=== PATIENT | female | born 1950 | race Caucasian/White ===

== ENCOUNTER → 2017-10-28 20:11 | Emergency (ER) | payer MEDICARE, OTHER ==
[~2017-10-28 20:11] MED LIST: Ciprofloxacin 400MG IVPREMIX(* 400 MG/200 ML BAG IVPB ONE; Morphine INJ* 2 MG/ML 1 ML SYRINGE (TWO MG - NEW SYRINGE VERSION) ONE; Morphine INJ** 4 MG/ML 1 ML CARPUJECT IV ONE
[2017-10-28 21:14] LABS: Urine Appearance Clear; Urine Blood 1+ (Negative); Urine Color Straw; Urine Ketones Negative (Negative); Urine Protein Negative (Negative); Urine Red Blood Cell Trace(0-2/hpf) (Absent); Urine Specific Gravity 1.006 (1.010-1.030); Urine Urobilinogen Negative (Negative); Urine White Blood Cell Trace(0-5/hpf) (Absent)
[2017-10-28 21:31] LABS: ABS Basophils 0.1 10^3/ul (0-0.2); ABS Eosinophils 0.5 10^3/ul (0-0.6); ABS Lymphocytes 2.1 10^3/ul (1.0-4.8); ABS Monocytes 1.4 10^3/ul (0-0.8); ABS Neutrophils 6.4 10^3/ul (1.5-7.7); ABS Nucleated RBC 0 10^3/ul; Eosinophil % 5.2 % (0-6); Hematocrit 47 % (35-47); Hemoglobin 15.8 g/dl (12.0-16.0); Lymphocyte % 19.8 % (25-47); Mean Corpuscular HGB Conc 34 g/dl (31-36); Mean Corpuscular Hemoglobin 30 pg (27-31); Mean Corpuscular Volume 90 fL (80-97); Mean Platelet Volume 7.8 um3 (7.4-10.4); Nucleated Red Blood Cells % 0.4; Platelet Count 256 10^3/ul (150-450); Red Cell Distribution Width 14 % (10.5-15); White Blood Count 10.5 10^3/ul (3.5-10.8)
[2017-10-28 21:47] LABS: EGFR Non-African American 82.4 (>60)
--- NOTE | 2017-10-28 22:39 | ED ---
GI/ HPI - HPI Summary HPI Summary: 67-year-old female presents with left-sided flank pain for the past couple days. She denies any injury. She admits to urgency. No dysuria. No hematuria. Denies any history of kidney stones. She denies any bowel pain. No nausea or vomiting. No fevers. No diarrhea or constipation. She denies any chest pain or shortness breath. No vaginal discharge. No loss of bowel or bladder. No saddle anesthesia. No pains in legs. No weakness. She has been trying Tylenol ibuprofen with minimal relief. She has never had this before. Has had a hysterectomy. Does not have a history of high blood pressure. - History of Current Complaint Chief Complaint: EDBackInjuryPain Time Seen by Provider: 10/28/17 21:06 Stated Complaint: BACK PAIN Pain Intensity: 8 - Allergy/Home Medications Allergies/Adverse Reactions: Allergies Allergy/AdvReac Type Severity Reaction Status Date / Time amoxicillin AdvReac GI Upset Verified 10/28/17 20:20 Home Medications: Home Medications Budesonide/Formote 160/4.5(NF) [Symbicort 160/4.5 (NF)] 1 inh .ROUTE DAILY 10/28 [History Confirmed 10/28/17] Tiotropium [place] [Spiriva Respimat] 1 inh .ROUTE DAILY 10/28/17 [History Confirmed 10/28/17] PMH/Surg Hx/FS Hx/Imm Hx Endocrine/Hematology History: Reports: Hx Diabetes Denies: Hx Anticoagulant Therapy Respiratory History: Reports: Hx Asthma - Cancer History Hx Chemotherapy: No Hx Radiation Therapy: No Infectious Disease History: No Infectious Disease History: Denies: Hx Clostridium Difficile, Hx Hepatitis, Hx Human Immunodeficiency Virus (HIV), Hx of Known/Suspected MRSA, Hx Shingles, Hx Tuberculosis, Traveled Outside the [place] in Last 30 Days - Family History Known Family History: Positive: Diabetes - Social History Alcohol Use: Rare Substance Use Type: Reports: None Smoking Status (MU): Never Smoked Tobacco Review of Systems Negative: Fever Negative: Chest Pain Negative: Shortness Of Breath Negative: Abdominal Pain Positive: flank pain All Other Systems Reviewed And Are Negative: Yes Physical Exam Triage Information Reviewed: Yes Vital Signs On Initial Exam: Initial Vitals Temp Pulse Resp BP Pulse Ox 99.5 F 98 16 180/108 97 10/28/17 20:13 10/28/17 20:13 10/28/17 20:13 10/28/17 20:13 10/28/17 20:13 Vital Signs Reviewed: Yes Appearance: Positive: Well-Appearing Skin: Positive: Warm, Dry Head/Face: Positive: Normal Head/Face Inspection Eyes: Positive: Normal, Conjunctiva Clear ENT: Positive: Pharynx normal Respiratory/Lung Sounds: Positive: Clear to Auscultation, Breath Sounds Present Cardiovascular: Positive: Normal, RRR Abdomen Description: Positive: Nontender, Soft, CVA Tenderness (L), Other: - tenderness left side of lower back Bowel Sounds: Positive: Present Musculoskeletal: Positive: Strength/ROM Intact - back, Other - tenderness side of back left, good pulses, neg SLR, sensation grossly intact lower extremity Neurological: Positive: Normal Psychiatric: Positive: Normal Diagnostics - Vital Signs Vital Signs Temp Pulse Resp BP Pulse Ox 10/28/17 21:39 17 10/28/17 20:13 99.5 F 98 16 180/108 97 - Laboratory Lab Results: Lab Results 10/28/17 10/28/17 10/28/17 Range/Units 20:58 21:23 21:23 WBC 10.5 (3.5-10.8) 10^3/ul RBC 5.20 (4.00-5.40) 10^6/ul Hgb 15.8 (12.0-16.0) g/dl Hct 47 (35-47) % MCV 90 (80-97) fL MCH 30 (27-31) pg MCHC 34 (31-36) g/dl RDW 14 (10.5-15) % Plt Count 256 (150-450) 10^3/ul MPV 7.8 (7.4-10.4) um3 Neut % (Auto) 60.4 (38-83) % Lymph % (Auto) 19.8 L (25-47) % [place] % (Auto) 13.5 H (0-7) % Eos % (Auto) 5.2 (0-6) % Baso % (Auto) 1.1 (0-2) % Absolute Neuts (auto) 6.4 (1.5-7.7) 10^3/ul Absolute Lymphs (auto) 2.1 (1.0-4.8) 10^3/ul Absolute Monos (auto) 1.4 H (0-0.8) 10^3/ul Absolute Eos (auto) 0.5 (0-0.6) 10^3/ul Absolute Basos (auto) 0.1 (0-0.2) 10^3/ul Absolute Nucleated RBC 0 10^3/ul Nucleated RBC % 0.4 Sodium 138 (135-145) mmol/L Potassium 3.8 (3.5-5.0) mmol/L Chloride 105 (101-111) mmol/L Carbon Dioxide 25 (22-32) mmol/L Anion Gap 8 (2-11) mmol/L BUN 16 (6-24) mg/dL Creatinine 0.71 (0.51-0.95) mg/dL Est GFR ( Amer) 99.7 (>60) Est GFR (Non-Af Amer) 82.4 (>60) BUN/Creatinine Ratio 22.5 H (8-20) Glucose 118 H (70-100) mg/dL Calcium 9.1 (8.6-10.3) mg/dL Total Bilirubin 0.30 (0.2-1.0) mg/dL AST 15 (13-39) U/L ALT 16 (7-52) U/L Alkaline Phosphatase 77 (34-104) U/L C-Reactive Protein 6.26 (<8.01) mg/L Total Protein 7.4 (6.4-8.9) g/dL Albumin 4.0 (3.2-5.2) g/dL Globulin 3.4 (2-4) g/dL Albumin/Globulin Ratio 1.2 (1-3) Lipase 17 (11.0-82.0) U/L Urine Color Straw Urine Appearance Clear Urine pH 6.0 (5-9) Ur Specific [place] 1.006 L (1.010-1.030) Urine Protein Negative (Negative) Urine Ketones Negative (Negative) Urine Blood 1+ A (Negative) Urine Nitrate Negative (Negative) Urine Bilirubin Negative (Negative) Urine Urobilinogen Negative (Negative) Ur Leukocyte Esterase Negative (Negative) Urine WBC (Auto) Trace(0-5/hpf) (Absent) Urine RBC (Auto) Trace(0-2/hpf) (Absent) Ur Squamous Epith Cells Present A (Absent) Urine Bacteria 1+ A (Absent) Urine Glucose Negative (Negative) Result Diagrams: 10/28/17 21:23 10/28/17 21:23 Lab Statement: Any lab studies that have been ordered have been reviewed, and results considered in the medical decision making process. - CT abd CT Interpretation: No Acute Changes - IMPRESSION: 1. No CT findings to correlate with patient's symptomatology. Specifically no obstructing renal or ureteral calculi. 2. Simple right renal cyst. 3. Distal colonic diverticulosis. CT Interpretation Completed By: Radiologist Re-Evaluation - Re-Evaluation First Eval Re-Evaluation Time: 23:27 Change: Improved Comment: feeling good, no pain GIGU Course/Dx - Course Course Of Treatment: 67-year-old female presents with left-sided flank pain for the past couple days. She denies any injury. She admits to urgency. No dysuria. No hematuria. Denies any history of kidney stones. She denies any bowel pain. No nausea or vomiting. No fevers. No diarrhea or constipation. She denies any chest pain or shortness breath. No vaginal discharge. No loss of bowel or bladder. No saddle anesthesia. No pains in legs. No weakness. She has been trying Tylenol ibuprofen with minimal relief. She has never had this before. Has had a hysterectomy. Does not have a history of high blood pressure. On exam tenderness left flank and side of back. CT shows no acute findings. white blood cell count normal. Urine shows potential UTI. We will treat with Cipro. Gave morphine and patient feeling better. Will prescribe pain medication if needed. Patient will follow-up about blood pressure with primary. Patient understands agrees with plan. - Diagnoses Differential Diagnoses - Female: Pyelonephritis, Urinary Tract Infection, Ureteral Calculi, Other - back pain Provider Diagnoses: UTI (urinary tract infection), Flank pain, Elevated blood pressure reading Discharge - Sign-Out/Discharge Documenting (check all that apply): Patient Departure - Discharge Plan Condition: Good Disposition: HOME Prescriptions: Ciprofloxacin TAB* [Cipro 500 MG TAB*] 500 mg PO BID #13 tab traMADol TAB* [Ultram*] 50 mg PO Q12H PRN #8 tab MDD 2 PRN Reason: Pain Patient Education Materials: Urinary Tract Infection in Women (ED) Referrals: Lizzette Flanagan MD [Primary Care Provider] - Additional Instructions: Take antibiotic twice a day for 7 days, starting tomorrow Drink plenty of water Take Tylenol or ibuprofen every 6 hours as needed for pain and use tramadol as needed for break through pain every 12 hours Return to ED if develop severe vomiting, or any new or worsening symptoms - Billing Disposition and Condition Condition: GOOD Disposition: Home
--- NOTE | 2017-10-28 22:53 | RAD ---
EXAM: CT Abdomen and Pelvis Without Intravenous Contrast CLINICAL HISTORY: 67 years old, female; Pain; Abdominal pain; Generalized; Additional info: Left flank pain TECHNIQUE: Axial computed tomography images of the abdomen and pelvis without intravenous contrast. All CT scans at this facility use at least one of these dose optimization techniques: automated exposure control; mA and/or kV adjustment per patient size (includes targeted exams where dose is matched to clinical indication); or iterative reconstruction. Coronal and sagittal reformatted images were created and reviewed. COMPARISON: No relevant prior studies available. FINDINGS: Lung bases: The visualized portions of the lung bases are normal. ABDOMEN: Liver: Normal. Normal size. No masses. Gallbladder and bile ducts: Normal. No radiopaque calculi. No ductal dilation. Pancreas: Normal. No ductal dilation. Spleen: Normal. No splenomegaly. Adrenals: Normal. No mass. Kidneys and ureters: Simple renal cyst right superior pole measures 1.6 cm (series 4, image 48). No renal calculi or pelvocaliectasis. Stomach and bowel: Incompletely distended grossly normal stomach. Normal caliber small bowel. Distal colonic diverticula without adjacent inflammatory changes or associated wall thickening. PELVIS: Appendix: No dilation or periappendiceal inflammation. Bladder: Thin-walled bladder with no focal nodularity, perivesicular stranding, or calcifications. No stones. Reproductive: Uterus and ovaries are normal. ABDOMEN and PELVIS: Intraperitoneal space: Normal. No pneumoperitoneum. No ascities. Bones/joints: The spine demonstrates mild degenerative changes at multiple levels. No fractures. No suspicious bone lesions. Soft tissues: Normal. No hernias. Vasculature: Normal. No abdominal aortic aneurysm. Lymph nodes: Normal. No enlarged lymph nodes. IMPRESSION: 1. No CT findings to correlate with patient's symptomatology. Specifically no obstructing renal or ureteral calculi. 2. Simple right renal cyst. 3. Distal colonic diverticulosis.
[2017-10-29 00:17] VITALS: BP 172/96
== END | disposition home or self-care (01) ==
LOC: ED 20:11
DX: N39.0 Urinary tract infection, site not specified (principal); M54.5 Low back pain; R03.0 Elevated blood-pressure reading, without diagnosis of hypertension; N28.1 Cyst of kidney, acquired; K57.30 Diverticulosis of large intestine without perforation or abscess without bleeding; J45.909 Unspecified asthma, uncomplicated; Z88.0 Allergy status to penicillin
CPT/HCPCS: 36415; 74176; 80053; 81003; 81015; 83690; 85025; 86140; 87086; 96365; 96375; 99283; J0744; J2270

== ENCOUNTER 2018-11-15 09:23 | Emergency (ER) | payer MEDICARE, OTHER ==
--- NOTE | 2018-11-15 09:30 | UC ---
Skin Complaint HPI - HPI Summary HPI Summary: Patient is a 68 year old female, who present today to the urgent care with a rash for past 2 weeks. Rash under both arms in axillary area and now right hand. It got worse yesterday. There is lot of associated itching. It is not very painful. Feels is progressing Denies any new soap, detergent , cosmetics, food or a possible exposure. Denies any fever, chills, cough, chest pain or shortness of breath . No diaphoresis. Denies any abdominal pain , nausea or vomiting , diarrhea or constipation. She also reports rash on the right hand dorsal surface but nothing can be seen at the site of concern which could be consistent with her lesion and appears normal skin - History of Current Complaint Time Seen by Provider: 11/15/18 09:25 Stated Complaint: RASH Hx Obtained From: Patient - Allergy/Home Medications Allergies/Adverse Reactions: Allergies Allergy/AdvReac Type Severity Reaction Status Date / Time clavulanic acid Allergy GI Upset Verified 11/15/18 09:34 [From Augmentin] amoxicillin AdvReac GI Upset Verified 11/15/18 09:34 Home Medications: Home Medications Cetirizine* [ZyrTEC 10 MG TAB*] 5 mg PO BEDTIME 11/15/18 [History Confirmed ] PMH/Surg Hx/FS Hx/Imm Hx - Additional Past Medical History Additional PMH: Past Medical History : Hypertension, asthma Past Surgical History: Family History : non contributory Social History : Rare alcohol, non smoker, no drug use. Previously Healthy: Yes Other History Of: Negative For: Anticoagulant Therapy - Surgical History Surgical History: None Surgery Procedure, Year, and Place: - Family History Known Family History: Positive: Diabetes, Non-Contributory - Social History Alcohol Use: Rare Substance Use Type: None Smoking Status (MU): Never Smoked Tobacco Review of Systems All Other Systems Reviewed And Are Negative: Yes Constitutional: Positive: Negative Skin: Positive: Rash - In both underarms Eyes: Positive: Negative ENT: Positive: Negative Respiratory: Positive: Negative Cardiovascular: Positive: Negative Gastrointestinal: Positive: Negative Genitourinary: Positive: Negative Motor: Positive: Negative Neurovascular: Positive: Negative Musculoskeletal: Positive: Negative Neurological: Positive: Negative Psychological: Positive: Negative Is Patient Immunocompromised?: No Physical Exam - Summary Physical Exam Summary: Vital Signs Reviewed: Yes A+Ox3, no distress Eyes: Conjunctiva Clear ENT: Hearing grossly normal neck: supple Respiratory: Positive: No respiratory distress, No accessory muscle use Cardiovascular: skin color reflect adequate perfusion Musculoskeletal Exam: [place] x 4 without difficulty Neurological: Positive: Alert, ambulatory without difficulty Psychological: Positive: Normal Response To Family Skin: There is an erythematous rash 5 inch x 5 inch on the left axillary area, nonblanching, no scales, very small vesicular like with the erythematous margin. There is another erythematous lesion measuring 3 inch x 1 inch on the right axillary area- again nonblanching, no scales. Few vesicles noted here. There is no rash on the dorsum of the right hand where she is noticing itching There is no drainage from any lesion Triage Information Reviewed: Yes Vital Signs Reviewed: Yes Course/Dx - Course Course Of Treatment: During the visit today, we discussed the findings - suspect contact dermatitis versus fungal infection . Possibility of shingles on the right underarm rash cannot be completely ruled out . Does not appear to be cellulitis I will treated for fungal infection and shingles . I will prescribe the medication to the pharmacy . I advised her to follow with dermatology or her primary care doctor within 2 days. I also marked the area so that she can monitor her for any worsening and advise her to return if it gets worse. Patient expressed understanding . - Diagnoses Provider Diagnosis: Fungal infection, Tinea corporis, Shingles Discharge ED - Sign-Out/Discharge Documenting (check all that apply): Patient Departure All imaging exams completed and their final reports reviewed: No Studies - Discharge Plan Condition: Stable Disposition: HOME Prescriptions: Clotrimazole/Betamethasone* [Lotrisone Cream*] 1 applic TOPICAL DAILY 14 Days # 1 tube ValACYclovir (*) [Valtrex 1 GM(*)] 1 gm PO TID 7 Days #21 tab Patient Education Materials: Shingles (ED), Dermatitis (ED) Referrals: Tom Yin MD [Medical Doctor] - 2 Days Lizzette Flanagan MD [Primary Care Provider] - 2 Days Additional Instructions: Please start taking the medication as prescribed to the pharmacy . Follow up with your primary care doctor and/ or dermatology in 2 days. Patients blood pressure slightly high in Urgent care today , plan follow up with PCP for better control within a month Return to Urgent care / ER if symptoms get worse. - Billing Disposition and Condition Condition: STABLE Disposition: Home
[2018-11-15 09:34] VITALS: BP 179/90
== END 2018-11-15 10:02 | disposition home or self-care (01) ==
LOC: UCEAST 09:23
DX: B02.9 Zoster without complications (principal); B35.4 Tinea corporis; B49 Unspecified mycosis; I10 Essential (primary) hypertension; J45.909 Unspecified asthma, uncomplicated
CPT/HCPCS: 99212; G0463